=== PATIENT | female | born 1995 | race Caucasian/White ===

== ENCOUNTER 2021-12-18 15:21 | Emergency (ER) | payer OTHER, SELFPAY ==
--- NOTE | ~2021-12-18 | XR_ITS ---
EXAMINATION: XR CHEST CLINICAL INFORMATION: Cough. Possible CHF. COMPARISON: None TECHNIQUE: Frontal view of the chest was obtained. FINDINGS: The lungs are well expanded. There is no focal consolidation, edema, or effusion. No pneumothorax. The cardiomediastinal silhouette is within normal limits. No acute osseous abnormality. XR/XR chest 1V IMPRESSION: Clear lungs.
--- NOTE | ~2021-12-18 | US_ITS ---
EXAMINATION: US PELVIS CLINICAL INFORMATION: Abdominal pain, bloating and pelvic cramping. Last menstrual period 12/14/2021. History of . COMPARISON: 06/29/2019. TECHNIQUE: Ultrasound of the pelvis is performed using both transabdominal and transvaginal transducers along with color Doppler. Transvaginal imaging is performed due to inadequate visualization transabdominally. FINDINGS: Uterus: The uterus is anteverted and measures 8.5 x 3.9 x 5.2 cm. Nabothian cysts overlie the cervix. The double wall endometrial thickness is 8 mm and demonstrates a small amount of fluid. The uterus is smooth in contour and has normal myometrial echogenicity. No visible fibroid. Adnexa: Both ovaries are visualized. There is normal color flow to the adnexa. There is no ovarian torsion. There is no pelvic ascites or fluid collection. Right ovary measures 3.0 x 1.9 x 2.3 cm. Volume of 7 mL. Left ovary measures 4.1 x 2.0 x 2.3 cm. Volume of 10 mL. No free fluid. US/US pelvic and transvaginal IMPRESSION: Small volume of fluid in the endometrial canal is likely physiologic given patient's age. Nabothian cysts overlie the cervix. No acute sonographic abnormalities to explain the patient's symptoms.
--- NOTE | ~2021-12-18 | CT_ITS ---
EXAMINATION: CT ABDOMEN AND PELVIS WITH CONTRAST CLINICAL INFORMATION: Lower abdominal pain and bloating COMPARISON: Ultrasound pelvis 12/18/2021 TECHNIQUE: Multidetector volumetric images were obtained from the superior aspect of the liver through the pubic symphysis following administration 85 mL of Omnipaque 350 intravenous contrast. Sagittal and coronal reformatted images were obtained on the technologist's workstation. Oral contrast: No This CT examination was performed using dose optimization techniques as appropriate, variously including the following: *Automated exposure control *Adjustment of mA and/or kV according to patient size (this includes techniques or standardized protocols for targeted exams where dose is matched to indication/reason for exam; i.e. extremities or head) *Use of iterative reconstruction technique DLP: 314 mGy-cm FINDINGS: LUNG BASES: The visualized lung bases are unremarkable. LIVER, GALLBLADDER, AND BILIARY TREE: The liver is normal in size, shape, and attenuation. Some mild periportal edema is present. No focal hepatic lesion or biliary ductal dilatation is present. The gallbladder is unremarkable with no evidence of radiopaque gallstones, gallbladder wall thickening, or obvious pericholecystic inflammatory changes. PANCREAS: Unremarkable. SPLEEN: Unremarkable. ADRENAL GLANDS: Unremarkable. KIDNEYS AND URETERS: The kidneys are normal in size, shape, and attenuation. No hydronephrosis, hydroureter, or calculi seen. No perinephric stranding. BLADDER: Unremarkable. GASTROINTESTINAL TRACT: The small and large bowel are unremarkable. The appendix is unremarkable. ABDOMINAL WALL: No significant hernia is appreciated. LYMPH NODES: Normal. VASCULAR: Unremarkable. PELVIC VISCERA: An anteverted uterus is present. An abnormal adnexal mass is not seen. Some small physiologic cysts seen in the right ovary similar to ultrasound earlier today. No free intraperitoneal fluid is seen. OSSEOUS STRUCTURES: Unremarkable. CT/CT abdomen pelvis w con IMPRESSION: A cause for the patient's lower abdominal pain and bloating is not found. Some physiologic ovarian cysts are seen no further follow-up or imaging is necessary. Some mild periportal edema is present. This is a nonspecific finding but may be seen in congestive heart failure and secondary liver congestion and hepatitis. Please correlate clinically. Fleischner guidelines were followed.
[2021-12-18 17:13] VITALS: BP 136/84; PULSE 76; RESP 18; TEMP 36.8; O2SAT 100; BMI 20.4
[2021-12-18 17:27] LABS: Hematocrit 33.2 % (37.0-47.0); Hemoglobin 10.3 g/dl (12.0-16.0); Mean Corpuscular Hemoglobin 25.5 pg (27.0-33.0); Mean Corpuscular Volume 82.2 fL (80.0-98.0); Mean Platelet Volume 11.7 fL (9.4-12.3); Platelet Count 167 X10*3/uL (160-400); Red Blood Count 4.04 X10*6/uL (4.20-5.50); Red Cell Distribution Width 16.1 % (11.0-16.0); White Blood Count 5.8 X10*3/uL (4.8-10.8)
[2021-12-18 17:38] LABS: Appearance Urine CLEAR; Color Urine YELLOW; Glucose Urine UA NEG (NEG); Leukocyte Esterase Urine NEG (NEG); Nitrite Urine NEG (NEG); PH 6.5 (5.0-8.0); Specific Gravity - Urine <= 1.005 (1.005-1.025); Urine Blood NEG (NEG); Urine Ketones NEG (NEG); Urine Protein NEG (NEG-TRACE)
[2021-12-18 17:41] LABS: UPreg QC Valid YES; Urine Pregnancy NEGATIVE (NEGATIVE)
[2021-12-18 17:55] LABS: Anion Gap 11 (12-20); Blood Urea Nitrogen 9 mg/dL (9-16); Calcium 9.4 mg/dL (8.4-10.2); Carbon Dioxide 28 mmol/L (22-29); Chloride 106 mmol/L (96-108); Creatinine Clr Calc Pharmacy 84.6; Estimated Glomerular Filt Rate > 60; Glucose Random 92 mg/dL (60-115); Lipase 26 U/L (8-78); Potassium 4.5 mmol/L (3.3-5.1); Sodium 140 mmol/L (135-145)
--- NOTE | 2021-12-18 19:27 | ED_ITS ---
HPI - Abdominal Pain General Chief Complaint: Abdominal Pain Stated Complaint: Abd pain/swelling, fatigue Time Seen by Provider: 12/18/21 19:25 Source: patient Mode of arrival: ambulatory Limitations: no limitations History of Present Illness MD elicited complaint: abdominal pain (bloating, sharp pelvic pain, negative tests) Onset (ago): month(s) (1) Pain Consistency: intermittent Location: pelvis Severity: moderate Quality: stabbing Radiation: back Migration to: no migration Exacerbating factors: nothing Relieving factors: nothing Context: other (no OCPs) Associated symptoms: nausea, diarrhea (loose stool yesterday) and other (abdomen is bloated she is using elastic hair ties to keep top of her cynthia buttons together) Related Data Allergies Allergy/AdvReac Type Severity Reaction Status Date / Time No Known Allergies Allergy Unverified 07/13/20 19:30 [No Known Allergies*] Review of Systems Review of Systems Constitutional : No Weight loss, No Fever, No Chills, pos fatigue ENT/Mouth : No sore throat, No Rhinorrhea Eyes: No Swelling, No Redness Cardiovascular : No Chest Pain, No SOB, NoEdema Respiratory : No Cough, No Sputum, No Wheezing Gastrointestinal : Positive Nausea, no Vomiting, positive Diarrhea, positive abdominal Pain, No Hematochezia, No Melena Genitourinary : No Dysuria, No Urinary Frequency, No Hematuria, No Urgency Musculoskeletal : No joint pain, No Myalgias, No Joint Swelling Skin : No Skin Lesions, No rash Neuro : pos Weakness, No Numbness, No Dizziness, No Headache Psych : No Anxiety/Panic, No Depression Heme/Lymph: No Bruising, No Lymphadenopathy Endocrine : No Polyuria, No Polydipsia All other systems reviewed and are negative. [facility] Past Medical History Attestation statement: The following information was validated with the patient. Medical History (Updated 12/18/21 @ 20:47 by Tabatha Doan DO) Anemia delivery delivered Social History Social History (Updated 12/18/21 @ 19:35 by Tabatha Doan DO) Patient Tobacco Use Status: Never used Tobacco Advance Directives: No Advance Directives Information Provided: No Patient : No Physical Exam ED Vital Signs: Vital Signs - 24 hr 12/18/21 17:13 12/18/21 20:37 Temperature 98.2 F 98.0 F Pulse Rate 76 64 Respiratory Rate 18 16 Blood Pressure 136/84 114/63 Pulse Oximetry 100 100 BMI result Body Mass Index 20.4 Appearance: Alert. Oriented X3. No acute distress. Eyes: Pupils equal, round and reactive to light. ENT: Pharynx normal. Neck: Normal inspection. Neck supple. CVS: Normal heart rate and rhythm. Pulses normal. Respiratory: No respiratory distress. Breath sounds normal. Abdomen: Soft and distended ?ascites her jeans are being held together at the top with elastic band for hair Skin: Skin warm and dry. pale skin color. Normal skin turgor. Extremities: No lower extremity edema. No calf ttp Neuro: Oriented X 3. No motor deficit. No sensory deficit. Course Course Course Narrative: signed out to Dr. Estrada pending workup - US negative but given degree of symptoms will obtain CT scan to r/o any further pathology such as mass or IBD MDM - Abdominal Pain MDM Narrative Medical decision making narrative: 26 yo female with hx of anemia, prior c section comes in with 1 month of worsening lower abdominal pain bloating fatigue she has taken multiple tests that are negative - at this time will obtain labs, hcg, US for ovarian pathology. I am concerned for obvious intra-abdominal pathology such as ovarian lesion causing her symptoms if US negative may need CT scan. Dispo per results and findings. Lab Data Result diagrams: 12/18/21 17:22 12/18/21 17:22 Labs: Lab Results 12/18/21 12/18/21 12/18/21 Range/Units 17:22 17:22 17:33 WBC 5.8 (4.8-10.8) X10*3/uL RBC 4.04 L (4.20-5.50) X10*6/uL Hgb 10.3 L (12.0-16.0) g/dl Hct 33.2 L (37.0-47.0) % MCV 82.2 (80.0-98.0) fL MCH 25.5 L (27.0-33.0) pg MCHC 31.0 (31.0-35.0) g/dl RDW 16.1 H (11.0-16.0) % Plt Count 167 (160-400) X10*3/uL MPV 11.7 (9.4-12.3) fL Absolute Nucleated RBC 0.000 (0.0-0.012) X10*3/uL Nucleated RBC % (auto) 0.0 (0.0-0.2) /100WBC Sodium 140 (135-145) mmol/L Potassium 4.5 (3.3-5.1) mmol/L Chloride 106 (96-108) mmol/L Carbon Dioxide 28 (22-29) mmol/L Anion Gap 11 L (12-20) BUN 9 (9-16) mg/dL Creatinine 0.76 (0.5-1.4) mg/dL Estim Creat Clear Calc 84.6 Estimated GFR > 60 Random Glucose 92 (60-115) mg/dL Calcium 9.4 (8.4-10.2) mg/dL Total Bilirubin 0.7 (0.0-1.0) mg/dL Direct Bilirubin 0.3 (0.0-0.5) mg/dL AST 16 (5-31) U/L ALT 9 (0-31) U/L Alkaline Phosphatase 48 (39-117) U/L Total Protein 7.4 (6.5-8.0) g/dL Albumin 4.6 (3.5-5.0) g/dL Lipase 26 (8-78) U/L Beta HCG, Quant mIU/mL Urine Color YELLOW Urine Appearance CLEAR Urine pH 6.5 (5.0-8.0) Ur Specific [place] <= 1.005 (1.005-1.025) Urine Protein NEG (NEG-TRACE) MG/DL Urine Glucose (UA) NEG (NEG) MG/DL Urine Ketones NEG (NEG) MG/DL Urine Blood NEG (NEG) Urine Nitrite NEG (NEG) Ur Leukocyte Esterase NEG (NEG) Urine Test (NEGATIVE) 12/18/21 12/18/21 Range/Units 17:33 19:43 WBC (4.8-10.8) X10*3/uL RBC (4.20-5.50) X10*6/uL Hgb (12.0-16.0) g/dl Hct (37.0-47.0) % MCV (80.0-98.0) fL MCH (27.0-33.0) pg MCHC (31.0-35.0) g/dl RDW (11.0-16.0) % Plt Count (160-400) X10*3/uL MPV (9.4-12.3) fL Absolute Nucleated RBC (0.0-0.012) X10*3/uL Nucleated RBC % (auto) (0.0-0.2) /100WBC Sodium (135-145) mmol/L Potassium (3.3-5.1) mmol/L Chloride (96-108) mmol/L Carbon Dioxide (22-29) mmol/L Anion Gap (12-20) BUN (9-16) mg/dL Creatinine (0.5-1.4) mg/dL Estim Creat Clear Calc Estimated GFR Random Glucose (60-115) mg/dL Calcium (8.4-10.2) mg/dL Total Bilirubin (0.0-1.0) mg/dL Direct Bilirubin (0.0-0.5) mg/dL AST (5-31) U/L ALT (0-31) U/L Alkaline Phosphatase (39-117) U/L Total Protein (6.5-8.0) g/dL Albumin (3.5-5.0) g/dL Lipase (8-78) U/L Beta HCG, Quant < 2 mIU/mL Urine Color Urine Appearance Urine pH (5.0-8.0) Ur Specific [place] (1.005-1.025) Urine Protein (NEG-TRACE) MG/DL Urine Glucose (UA) (NEG) MG/DL Urine Ketones (NEG) MG/DL Urine Blood (NEG) Urine Nitrite (NEG) Ur Leukocyte Esterase (NEG) Urine Test NEGATIVE (NEGATIVE) Discharge Plan Discharge Clinical Impression: Abdominal pain Patient Disposition: Still a Patient
[2021-12-18] MEDS: 0.9 % Sodium Chloride 1,000 ML 999 ML IV (19:53)
[2021-12-18 19:56] LABS: Alanine Aminotransferase 9 U/L (0-31); Albumin Level 4.6 g/dL (3.5-5.0); Alkaline Phosphatase 48 U/L (39-117); Aspartate Amino Transferase 16 U/L (5-31); Bilirubin Direct 0.3 mg/dL (0.0-0.5); Bilirubin Total 0.7 mg/dL (0.0-1.0); Total Protein 7.4 g/dL (6.5-8.0)
--- NOTE | 2021-12-18 20:16 | PC.NURSE ---
MD AT BEDSIDE, IV PLACED TO PT, LABS DRAWN TO LAB. SIGN OTHER AT BEDSIDE WITH PT. NS UP AND RUNNING W/O SITE INTACT. AWAITING FOR FURTHER ORDERS. PT ALERT, RESPIRATIONS EASY, N/L. SKIN W/D.
[2021-12-18 20:19] LABS: HCG Quantitative < 2 mIU/mL
[2021-12-18 20:37] VITALS: BP 114/63; PULSE 64; RESP 16; TEMP 36.7; O2SAT 100
[2021-12-18] MEDS: iohexoL 350 MG/ML 100 ML INFUS..BTL IV (21:17)
--- NOTE | 2021-12-18 22:33 | PC.NURSE ---
labs being drawn at this time.
[2021-12-18 23:05] LABS: B Type Natriuretic Peptide < 10 pg/mL (<100)
== END 2021-12-18 23:43 | disposition home or self-care (01) ==
PROVIDERS: Emergency Medicine; Emergency Provider Student in an Organized Health Care Education/Training Program
DX: R10.30 Lower abdominal pain, unspecified (principal)
CPT/HCPCS: 36415; 71045; 74177; 76830; 76856; 80048; 80076; 81003; 81025; 83690; 83880; 84702; 85027; 96360; 99283; 99284; Q9967

== ENCOUNTER 2024-11-21 13:45 | Emergency (ER) | payer OTHER, SELFPAY ==
--- NOTE | ~2024-11-21 | XR_ITS ---
CLINICAL HISTORY: cough 2 view chest x-ray Comparison: CR/UT/SR - XR CHEST 1V - 12/18/21 22:39 EST Findings: No consolidation or effusion. Normal size heart. No acute fracture. IMPRESSION: 1. No acute findings. This document has been electronically signed by: Mirella Hernandez MD on 11/21/2024 15:24:36
[2024-11-21 14:13] VITALS: BP 117/66; BP 133/70; PULSE 100; PULSE 90; RESP 20; TEMP 37.8; O2SAT 100; O2SAT 98; BMI 20.6
--- NOTE | 2024-11-21 14:14 | ED.GENADULT ---
HPI - General Adult General Chief complaint: Fever Stated complaint: FLU SX Time Seen by Provider: 11/21/24 14:03 Source: patient Mode of arrival: EMS Limitations: no limitations History of Present Illness HPI narrative: This is a 29 years old the patient presented to the emergency department complaining of cough congestion fever for 3 or 4 days. Denies any vomiting any diarrhea she has history of anemia. Denies any smoking history. Onset (ago): day(s) (4) Location: chest Radiation: non-radiation Severity: moderate Pain Consistency: constant Relieving factors: none Exacerbating factors: none Related Data Previous Rx's ?Medication ?Instructions ?Recorded ibuprofen 600 mg tablet 600 mg PO Q8H prn fever/body aches 11/21/24 #20 tabs Allergies Allergy/AdvReac Type Severity Reaction Status Date / Time No Known Allergies Allergy Unverified 11/21/24 14:16 [No Known Allergies*] Review of Systems Eyes: Eyes: Reports no additional eye complaints Cardiovascular: Cardiovascular: Reports no additional cardiovascular complaints [facility] Past Medical History Attestation statement: The following information was validated with the patient. [facility] Narrative: Anemia Medical History Anemia delivery delivered Social History Social History Patient Tobacco Use Status: Never used Tobacco Smoked in Last 30 Days: No Use of substances other than those prescribed or required for medical reasons: No Advance Directives: No Advance Directives Information Provided: Yes Do you have a plan to hurt others: No Plan Patient : No Physical Exam ED Vital Signs: Vital Signs - 24 hr 11/21/24 14:13 11/21/24 15:08 11/21/24 15:44 Temperature 100.1 F 98.7 F Pulse Rate 100 94 Respiratory Rate 20 Blood Pressure 117/66 111/61 Pulse Oximetry 100 Oxygen Delivery Method Room Air BMI result Body Mass Index 20.6 No acute distress Const General: cooperative Nutritional Appearance: well nourished Orientation/consciousness: patient oriented x3 Limitations: no limitations HENMT Other: Examination of the head eyes ear nose and throat within normal limit General nose exam: Normal external nose present Mouth: Normal oral and palatal mucosa present Neck Neck: Yes normal visual inspection and Yes full ROM Resp Effort & Inspection: normal respiratory effort Auscultation: clear to auscultation bilaterally Cardio Jugular venous distension: no JVD Rate: regular rate Rhythm: regular rhythm GI Inspection: Yes normal to inspection Percussion: Yes normal to percussion Auscultation: normal bowel sounds General: Yes no CVA tenderness Back/Spine/Pelvis Back: no CVA tenderness Skin General skin exam: no rashes or lesions noted and elasticity normal Neuro General: patient oriented x3 Course Reevaluation(s) Reevaluation #1: Patient tested positive for the flu she is feeling better at this time chest x-ray negative labs otherwise normal anticipate discharge Time: 16:18 Medications Administered Generic Name Dose Route Start Last Admin Trade Name Freq PRN Reason Stop Dose Admin Sodium Chloride 1,000 mls @ 999 mls/hr 11/21/24 15:30 11/21/24 15:43 Ns IVCONT 11/21/24 16:30 999 mls/hr .Q1H1M LAWSON Administration Discontinued Medications Generic Name Dose Route Start Last Admin Trade Name Freq PRN Reason Stop Dose Admin Acetaminophen 975 mg 11/21/24 14:12 11/21/24 14:20 Acetaminophen 325 Mg Tablet PO 11/21/24 14:13 975 mg ONCE ONE Administration Sodium Chloride 1,000 mls @ 999 mls/hr 11/21/24 14:15 11/21/24 15:20 Ns IVCONT 11/21/24 15:15 Infused .Q1H1M LAWSON Infusion Medical Decision Making Medical Decision Making [facility] Narrative: Patient presented with cough and congestion we will obtain a chest x-ray labs Differential Diagnosis Differential Diagnoses: The differential diagnosis associated with the presentation includes Pneumonia/flu/bronchitis Admission/Observation Consideration of admission/observation: Escalation of care including admission/observation considered Lab Data [facility] Lab Attestation statement: I reviewed the patient's lab results. 11/21/24 15:20 11/21/24 15:20 Labs: Lab Results 11/21/24 Range/Units 15:20 WBC 4.2 L (4.8-10.8) X10*3/uL RBC 4.37 (4.20-5.50) X10*6/uL Hgb 11.4 L (12.0-16.0) g/dl Hct 36.2 L (37.0-47.0) % MCV 82.8 (80.0-98.0) fL MCH 26.1 L (27.0-33.0) pg MCHC 31.5 (31.0-35.0) g/dl RDW 22.1 H (11.0-16.0) % Plt Count 77 L D (160-400) X10*3/uL MPV 12.8 H (9.4-12.3) fL Immature Gran % (Auto) 0.2 (0.0-0.4) % Neut % (Auto) 83.9 H (45-73) % Lymph % (Auto) 8.0 L (20-40) % [place] % (Auto) 7.7 (2-11) % Eos % (Auto) 0.0 (0-4) % Baso % (Auto) 0.2 (0-2) % Lymph # (Auto) 0.3 L (1.2-4.9) X10*3/uL [place] # (Auto) 0.3 (0.1-1.2) X10*3/uL Eos # (Auto) 0.0 (0.0-0.4) X10*3/uL Baso # (Auto) 0.0 (0.0-0.2) X10*3/uL Abs Immat Gran (auto) 0.01 (0.00-0.03) X10*3/uL Absolute Neuts (auto) 3.5 (2.0-8.3) x10*3/uL Absolute Nucleated RBC 0.000 (0.0-0.012) X10*3/uL Nucleated RBC % (auto) 0.0 (0.0-0.2) /100WBC Smear Tech's Comments VERIFIED Sodium 138 (135-145) mmol/L Potassium 3.5 (3.3-5.1) mmol/L Chloride 110 H (96-108) mmol/L Carbon Dioxide 20 L (22-29) mmol/L Anion Gap 12 (12-20) BUN 7 L (9-16) mg/dL Creatinine 0.78 (0.5-1.4) mg/dL Estim Creat Clear Calc 80.2 Estimated GFR > 60 Random Glucose 125 H (60-115) mg/dL Lactic Acid 1.1 (0.5-2.0) mmol/L Calcium 7.3 L D (8.4-10.2) mg/dL Total Bilirubin 0.5 (0.0-1.0) mg/dL AST 28 (5-31) U/L ALT 16 (0-31) U/L Alkaline Phosphatase 32 L (39-117) U/L Total Protein 7.1 (6.5-8.0) g/dL Albumin 4.1 (3.5-5.0) g/dL Beta HCG, Quant < 2 mIU/mL Influenza Type A (PCR) NEGATIVE (Negative) Influenza Type B (PCR) POSITIVE A (Negative) RSV RNA Qual (PCR) NEGATIVE (Negative) SARS-CoV-2 RNA (RT-PCR) NEGATIVE (Negative) Independent Interpretation I performed an independent interpretation of an: Plain X-Ray Interpretation: NAD Radiology Impression Discussion of test interpretation with radiology: I have reviewed the radiologist's reading. Independent Historian Clinical information obtained from an independent historian. History obtained from or confirmed by: Spouse Discharge Plan Discharge Clinical Impression: Influenza Patient Disposition: Home, Self-Care Instructions: Influenza (DC) Additional Instructions: Drink lots of fluids, rest, ibuprofen every 8 hours as needed for body aches and fever. You tested positive for the flu Prescriptions: New ibuprofen 600 mg tablet 600 mg PO Q8H Qty: 20 0RF Referrals: Physician,Nonstaff [Primary Care Provider] - 3 days Print Language: Upper Sorbian
[2024-11-21] MEDS: Acetaminophen 325 MG TABLET 975 MG PO (14:20)
[2024-11-21] MEDS: 0.9 % Sodium Chloride 1,000 ML 999 ML IVCONT ×2 (14:23→15:43)
[2024-11-21 15:08] VITALS: BP 111/61; PULSE 94
[2024-11-21 15:29] LABS: Basophils Percent Auto 0.2 % (0-2); Imm Gran Abs Auto 0.01 X10*3/uL (0.00-0.03); Imm Gran Pct Auto 0.2 % (0.0-0.4); Lymphocytes Absolute Auto 0.3 X10*3/uL (1.2-4.9); MANUAL DIFF FLAG SCAN; Mean Platelet Volume 12.8 fL (9.4-12.3); PLT CLUMP 1; SCAN SMEAR FLAG 1
[2024-11-21 15:31] LABS: Hematocrit 36.2 % (37.0-47.0); Hemoglobin 11.4 g/dl (12.0-16.0); Mean Corpuscular HGB Conc 31.5 g/dl (31.0-35.0); Mean Corpuscular Hemoglobin 26.1 pg (27.0-33.0); Mean Corpuscular Volume 82.8 fL (80.0-98.0); Monocytes Absolute Auto 0.3 X10*3/uL (0.1-1.2); Monocytes Percent Auto 7.7 % (2-11); Neutrophils Absolute Auto 3.5 x10*3/uL (2.0-8.3); Neutrophils Percent Auto 83.9 % (45-73); Red Blood Count 4.37 X10*6/uL (4.20-5.50); Red Cell Distribution Width 22.1 % (11.0-16.0)
[2024-11-21 15:43] LABS: Alanine Aminotransferase 16 U/L (0-31); Albumin Level 4.1 g/dL (3.5-5.0); Alkaline Phosphatase 32 U/L (39-117); Anion Gap 12 (12-20); Aspartate Amino Transferase 28 U/L (5-31); Bilirubin Total 0.5 mg/dL (0.0-1.0); Blood Urea Nitrogen 7 mg/dL (9-16); Calcium 7.3 mg/dL (8.4-10.2); Carbon Dioxide 20 mmol/L (22-29); Chloride 110 mmol/L (96-108); Creatinine Clr Calc Pharmacy 80.2; Estimated Glomerular Filt Rate > 60; Glucose Random 125 mg/dL (60-115); Lactic Acid 1.1 mmol/L (0.5-2.0); Potassium 3.5 mmol/L (3.3-5.1); Sodium 138 mmol/L (135-145); Total Protein 7.1 g/dL (6.5-8.0)
[2024-11-21 15:44] VITALS: TEMP 37.1
[2024-11-21 15:50] LABS: HCG Quantitative < 2 mIU/mL; Platelet Count 77 X10*3/uL (160-400); SLIDE REVIEW VERIFIED; White Blood Count 4.2 X10*3/uL (4.8-10.8)
[2024-11-21 16:07] LABS: Influenza A PCR NEGATIVE (Negative); Influenza B PCR POSITIVE (Negative); Resp Syncy Virus RNA Qual PCR NEGATIVE (Negative); SARS COV2 PCR INHOUSE NEGATIVE (Negative)
[2024-11-21] MEDS: Ibuprofen 600 MG TABLET PO (16:24)
[2024-11-21 16:31] VITALS: BP 104/52; PULSE 83; RESP 18; O2SAT 97
[2024-11-21 16:33] VITALS: BP 104/52; PULSE 83; RESP 18; TEMP 37.1; O2SAT 97
== END 2024-11-21 16:34 | disposition home or self-care (01) ==
PROVIDERS: Emergency Provider Emergency Medicine
DX: J10.1 Influenza due to other identified influenza virus with other respiratory manifestations (principal); R05.9 Cough, unspecified; R50.9 Fever, unspecified; Z03.818 Encounter for observation for suspected exposure to other biological agents ruled out; Z79.899 Other long term (current) drug therapy
CPT/HCPCS: 0241U; 36415; 71046; 80053; 83605; 84702; 85025; 87040; 96360; 96361; 99284; 99285

== ENCOUNTER → 2024-11-21 14:10 | Outpatient (BNV) | payer OTHER, SELFPAY | PROVIDERS: Emergency Provider Emergency Medicine; Visit Provider Radiology Diagnostic Radiology | DX: R05.9 Cough, unspecified (principal) | CPT/HCPCS: 71046 ==